=== PATIENT | male | born 1985 | race African-American/Black ===

== ENCOUNTER 2018-01-11 17:10 | Emergency (ER) | payer SELFPAY ==
[~2018-01-11] VITALS: Ht 167.6 cm; Wt 59.2 kg
[~2018-01-11 17:10] MED LIST: NOHOMEMEDS
[2018-01-11] MEDS ORDERED: MOTRIN800 MG PO (18:23)
[2018-01-11] MEDS ORDERED: FLEXERIL10 MG PO (18:23)
[2018-01-11 18:39] VITALS: BP 99/55
== END 2018-01-11 18:46 | disposition home or self-care (01) ==
LOC: EME 17:10
DX: S40.012A Contusion of left shoulder, initial encounter (principal); S39.012A Strain of muscle, fascia and tendon of lower back, initial encounter; M62.838 Other muscle spasm; V49.50XA Passenger injured in collision with unspecified motor vehicles in traffic accident, initial encounter; Y92.410 Unspecified street and highway as the place of occurrence of the external cause; F17.200 Nicotine dependence, unspecified, uncomplicated
CPT/HCPCS: 73030; 99281; 99284

== ENCOUNTER 2018-02-21 19:06 | Emergency (ER) | payer OTHER ==
[~2018-02-21] VITALS: Ht 167.6 cm; Wt 63.1 kg
[~2018-02-21 19:06] MED LIST changes: +FLEXERIL10 MG PO; +MOTRIN800 MG PO
[2018-02-21 19:43] LABS: HEMATOCRIT 41.7 % (38.0-50.0); HEMOGLOBIN 14.1 G/DL (12.5-16.6); MCH 33.5 PG (29.0-34.0); MCHC 33.8 G/DL (30.0-36.0); PLATELET COUNT 189 K/uL (156-360); RBC DIS.WIDTH-CV 11.8 % (11.8-14.6); RBC DIS.WIDTH-SD 42.9 % (39-53); RED BLOOD COUNT 4.21 M/uL (4.00-5.50); WHITE BLOOD COUNT 5.1 K/uL (4.1-10.2)
[2018-02-21 19:54] LABS: ALBUMIN 4.5 g/dL (3.2-4.8); CHLORIDE 102 mEq/L (99-109); POTASSIUM 4.4 mEq/L (3.7-5.4); SODIUM 142 mEq/L (136-147)
[2018-02-21 19:56] LABS: GLUCOSE 64 mg/dL (70-99); TOTAL PROTEIN 7.7 g/dL (6.4-8.3)
[2018-02-21 19:58] LABS: TOTAL BILIRUBIN 1.1 mg/dL (0.0-1.0)
[2018-02-21 20:00] LABS: ALKALINE PHOSPHATASE 53 IU/L (3-129); GFR ESTIMATE (CALCULATED) > 59 mL/min/ (58.99-99999)
[2018-02-21 20:01] LABS: UREA NITROGEN (BUN) 13 mg/dL (9-23)
[2018-02-21 20:02] LABS: AST (GOT) 27 IU/L (2-34)
[2018-02-21 20:03] LABS: ALT (GPT) 20 IU/L (3-49); LIPASE 55 U/L (1.0-51.0)
[2018-02-21] MEDS ORDERED: ZOFRAN4 MG PO (21:33)
[2018-02-21] MEDS ORDERED: BENTYL20 MG PO (21:33)
[2018-02-21 21:41] VITALS: BP 116/69
== END 2018-02-21 21:41 | disposition home or self-care (01) ==
LOC: EME 19:06
DX: R10.11 Right upper quadrant pain (principal); R74.8 Abnormal levels of other serum enzymes; F17.200 Nicotine dependence, unspecified, uncomplicated
CPT/HCPCS: 71046; 80053; 81003; 83690; 85027; 99281; 99283